=== PATIENT | female | born 1990 | race Caucasian/White ===

== ENCOUNTER → 2017-01-05 | Outpatient (CLI) | payer OTHER | LOC: FIMAGING 10:31 | PROVIDERS: ATTEND Advanced Practice Midwife | DX: Z00.00 Encounter for general adult medical examination without abnormal findings (principal); Z97.5 Presence of (intrauterine) contraceptive device ==

== ENCOUNTER 2017-03-01 17:42 | Emergency (ER) | payer SELFPAY ==
[2017-03-01] MEDS ORDERED: NS 1,000 ML IV ONE (18:09)
[2017-03-01 19:07] LABS: PLATELET COUNT 255 10^3/uL (150-400)
[2017-03-01 19:56] LABS: PLATELET COUNT 259 10^3/uL (150-400)
--- NOTE | 2017-03-01 20:18 | EDPHY ---
H & P Stated Complaint: rlq abd pain since yesterday/pid 2 months ago HPI/ROS: Chief complaint: Abdominal pain History of present illness: This is a 27-year-old female who presents to the emergency department for evaluation of abdominal pain. She reports the onset of symptoms yesterday. Symptoms primarily involve the right, lower aspect of the abdomen. She describes a soreness. No reported precipitating factors. No alleviating or aggravating factors. No other associated signs or symptoms including no fevers., no nausea, vomiting or diarrhea, no urinary symptoms, no abnormal vaginal discomfort or discharge. Review of systems: A 10 point review of systems was obtained and other than described above was negative - Personal History LMP (Females 10-55): IUD In Place Current Tetanus/Diphtheria Vaccine: Yes - Medical/Surgical History Hx Asthma: No Hx Chronic Respiratory Disease: No Hx Diabetes: No Hx Cardiac Disease: No Hx Renal Disease: No Hx Cirrhosis: No Hx Alcoholism: No Hx HIV/AIDS: No Hx Splenectomy or Spleen Trauma: No Other PMH: denies - Social History Smoking Status: Never smoked - Physical Exam Exam: General Appearance: Alert, nontoxic. Eyes: Pupils equal and round no pallor or injection. ENT, Mouth: Mucous membranes moist. Respiratory: There are no retractions, lungs are clear to auscultation. Cardiovascular: Regular rate and rhythm. Gastrointestinal: Bowel sounds normal. Abdomen is soft. Nondistended. She reports mild discomfort in the right lower quadrant but no specific McBurney's point tenderness. No peritoneal signs are noted. Neurological: Alert and oriented x4. Strength and sensation intact and symmetrical. Skin: Warm and dry, no rashes. Musculoskeletal: Neck is supple non tender. Extremities are symmetrical, full range of motion. Psychiatric: Patient is oriented X 3, there is no agitation. Constitutional: Initial Vital Signs Temperature (C) 37.1 C 03/01/17 18:00 Heart Rate 70 03/01/17 18:00 Respiratory Rate 19 03/01/17 18:00 Blood Pressure 137/106 H 03/01/17 18:00 O2 Sat (%) 100 03/01/17 18:00 O2 Delivery Mode Room Air Allergies/Adverse Reactions: oxycodone [Oxycodone] Allergy (Verified 03/01/17 17:59) GI Home Medications: Medication Instructions Recorded NK [No Known Home Meds] 03/01/17 Medical Decision Making - Diagnostics Imaging Results: Imaging Impressions Abdomen Ultrasound 03/01/17 18:09 Impression: 1. Nonvisualization of the appendix from overlying bowel gas. 2. Normal-appearing 9-mm lymph node found. Pelvic/Renal Ultrasound 03/01/17 18:09 Impression: IUD in good position. Otherwise normal pelvic ultrasound. Findings and recommendations discussed with HEIDY Lombardo at 7:33 PM hour, 12/2017. Final report concurs with initial preliminary interpretation. Imaging: Discussed imaging studies w/ call center assistant Radiologist ED Course/Re-evaluation: Patient seen under the supervision of my secondary supervising physician Dr. Heladio Liu. Patient presents to the emergency department for right lower quadrant abdominal discomfort. On presentation she is afebrile, vital signs are stable. She is nontoxic. Physical exam reveals mild soreness in the right lower quadrant but no peritoneal signs. No change on serial abdominal exams. Blood studies unremarkable including no leukocytosis. Pelvic ultrasound unremarkable. Appendix not visualized on ultrasound. I discussed with patient pursuing a CT scan to better visualize the right lower quadrant. We discussed the risks and benefits. Given the lack of fever, lack of white blood cell count , she prefers not to pursue it given the radiation exposure. I believe this is appropriate. We will discharge her home. Home care is discussed. She is to have a recheck tomorrow either in this emergency room or by a primary care doctor. Strict return precautions are given. The patient voiced understanding and agreement with plan. Differential Diagnosis: Included but not limited to gas, colitis, appendicitis, diverticulitis, urinary tract disease, ovarian cyst, ovarian torsion, tubo-ovarian abscess, an associated complications - Data Points Laboratory Results: Laboratory Results 03/01/17 19:25 03/01/17 18:15 03/01/17 03/01/17 03/01/17 19:25 19:25 18:15 WBC 7.76 10^3/uL 10^3/uL 7.98 10^3/uL 10^3/uL (3.80-9.50) (3.80-9.50) RBC 4.20 10^6/uL 10^6/uL 4.36 10^6/uL 10^6/uL (4.18-5.33) (4.18-5.33) Hgb 13.2 g/dL g/dL 14.0 g/dL g/dL (12.6-16.3) (12.6-16.3) Hct 38.7 % % 39.9 % % (38.0-47.0) (38.0-47.0) MCV 92.1 fL fL 91.5 fL fL (81.5-99.8) (81.5-99.8) MCH 31.4 pg pg 32.1 pg pg (27.9-34.1) (27.9-34.1) MCHC 34.1 g/dL g/dL 35.1 g/dL g/dL (32.4-36.7) (32.4-36.7) RDW 12.3 % % 12.3 % % (11.5-15.2) (11.5-15.2) Plt Count 259 10^3/uL 10^3/uL 255 10^3/uL 10^3/uL (150-400) (150-400) MPV 9.1 fL fL 9.2 fL fL (8.7-11.7) (8.7-11.7) Neut % (Auto) 60.0 % % 59.2 % % (39.3-74.2) (39.3-74.2) Lymph % (Auto) 27.1 % % 28.2 % % (15.0-45.0) (15.0-45.0) Mobile % (Auto) 9.8 % % 9.4 % % (4.5-13.0) (4.5-13.0) Eos % (Auto) 2.2 % % 2.1 % % (0.6-7.6) (0.6-7.6) Baso % (Auto) 0.6 % % 0.8 % % (0.3-1.7) (0.3-1.7) Nucleat RBC Rel Count 0.0 % % 0.0 % % (0.0-0.2) (0.0-0.2) Absolute Neuts (auto) 4.66 10^3/uL 10^3/uL 4.73 10^3/uL 10^3/uL (1.70-6.50) (1.70-6.50) Absolute Lymphs (auto) 2.10 10^3/uL 10^3/uL 2.25 10^3/uL 10^3/uL (1.00-3.00) (1.00-3.00) Absolute Monos (auto) 0.76 10^3/uL 10^3/uL 0.75 10^3/uL 10^3/uL (0.30-0.80) (0.30-0.80) Absolute Eos (auto) 0.17 10^3/uL 10^3/uL 0.17 10^3/uL 10^3/uL (0.03-0.40) (0.03-0.40) Absolute Basos (auto) 0.05 10^3/uL 10^3/uL 0.06 10^3/uL 10^3/uL (0.02-0.10) (0.02-0.10) Absolute Nucleated RBC 0.00 10^3/uL 10^3/uL 0.00 10^3/uL 10^3/uL (0-0.01) (0-0.01) Immature Gran % 0.3 % % 0.3 % % (0.0-1.1) (0.0-1.1) Immature Gran # 0.02 10^3/uL 10^3/uL 0.02 10^3/uL 10^3/uL (0.00-0.10) (0.00-0.10) Sodium Potassium Chloride Carbon Dioxide Anion Gap BUN Creatinine Estimated GFR Glucose Calcium Beta HCG, Qual Specimen Hemolysis Urine Color YELLOW Urine Appearance CLEAR Urine pH 9.0 H (5.0-7.5) Ur Specific [place] 1.025 (1.002-1.030) Urine Protein 1+ H (NEGATIVE) Urine Ketones NEGATIVE (NEGATIVE) Urine Blood NEGATIVE (NEGATIVE) Urine Nitrate NEGATIVE (NEGATIVE) Urine Bilirubin NEGATIVE (NEGATIVE) Urine Urobilinogen NEGATIVE EU EU (0.2-1.0) Ur Leukocyte Esterase TRACE H (NEGATIVE) Urine RBC NONE SEEN /hpf /hpf (0-3) Urine WBC NONE SEEN /hpf /hpf (0-3) Ur Epithelial Cells 1+ /lpf /lpf (NONE-1+) Urine Mucus TRACE /lpf /lpf (NONE-1+) Urine Glucose NEGATIVE (NEGATIVE) 03/01/17 03/01/17 03/01/17 18:15 18:15 18:15 WBC REJ RBC Not Reported Hgb Not Reported Hct Not Reported MCV Not Reported MCH Not Reported MCHC Not Reported RDW Not Reported Plt Count Not Reported MPV Not Reported Neut % (Auto) Not Reported Lymph % (Auto) Not Reported Mobile % (Auto) Not Reported Eos % (Auto) Not Reported Baso % (Auto) Not Reported Nucleat RBC Rel Count Not Reported Absolute Neuts (auto) Not Reported Absolute Lymphs (auto) Not Reported Absolute Monos (auto) Not Reported Absolute Eos (auto) Not Reported Absolute Basos (auto) Not Reported Absolute Nucleated RBC Not Reported Immature Gran % Not Reported Immature Gran # Not Reported Sodium 141 mEq/L mEq/L (135-145) Potassium 4.7 mEq/L mEq/L (3.5-5.2) Chloride 107 mEq/L mEq/L (97-110) Carbon Dioxide 21 mEq/l L mEq/l (22-31) Anion Gap 13 mEq/L mEq/L (8-16) BUN 8 mg/dL mg/dL (7-23) Creatinine 0.7 mg/dL mg/dL (0.6-1.0) Estimated GFR > 60 Glucose 87 mg/dL mg/dL (70-100) Calcium 9.5 mg/dL mg/dL (8.5-10.4) Beta HCG, Qual NEGATIVE Specimen Hemolysis 137 Urine Color Urine Appearance Urine pH Ur Specific [place] Urine Protein Urine Ketones Urine Blood Urine Nitrate Urine Bilirubin Urine Urobilinogen Ur Leukocyte Esterase Urine RBC Urine WBC Ur Epithelial Cells Urine Mucus Urine Glucose Medications Given: Discontinued Medications Sodium Chloride (Ns) 1,000 mls @ 0 mls/hr IV EDNOW ONE; Wide Open PRN Reason: Protocol Stop: 03/01/17 18:10 Last Admin: 03/01/17 18:28 Dose: 1,000 mls Departure - Departure Disposition: Home, Routine, Self-Care Clinical Impression: Abdominal pain Qualifiers: Abdominal location: right lower quadrant Qualified Code(s): R10.31 - Right lower quadrant pain Condition: Good Instructions: Acute Abdominal Pain (ED) Additional Instructions: Follow-up with a primary care doctor or this emergency room in the next 12-24 hours for recheck of your abdominal pain If symptoms worsen or new symptoms develop please return immediately to the emergency room for recheck Referrals: NONE *PRIMARY CARE P,. [Primary Care Provider] - As per Instructions [facility],. [Clinic] - As per Instructions
[2017-03-01 20:34] VITALS: BP 115/77; PULSE 65; RESP 16; TEMP 99.1; O2SAT 96
== END 2017-03-01 20:33 | disposition home or self-care (01) ==
DX: R10.31 Right lower quadrant pain (principal); E86.9 Volume depletion, unspecified